=== PATIENT | female | born 1985 | race Hispanic/Latino ===

== ENCOUNTER 2019-02-23 09:19 | Emergency (ER) | payer OTHER ==
[2019-02-23 09:34] VITALS: TEMP 98.6; BMI 38.4
[2019-02-23] MEDS ORDERED: Sodium Chloride 0.9% 1,000 ML IV STA (10:02)
--- NOTE | 2019-02-23 10:23 | ED PDOC ---
Arrival/HPI - General Chief Complaint: Abdominal Pain Time Seen by Provider: 02/23/19 09:33 Historian: Patient - History of Present Illness Narrative History of Present Illness (Text): 33 y/o female with PMH of GERD and anxiety presents to the ED c/o abdominal pain x 1 day. Abdominal pain is sharp, epigastric, with radiation into her back. Associated bloating and nausea. Symptoms began yesterday after a vodka soda and salad at dinner. Back pain is worse with movement, and she thinks she may have strained herself picking up heavy laundry bags the last 2 days. She saw her PMD early yesterday for sinus congestion and was prescribed an antibiotic that she has not started yet. Pt has had problems with GERD in the past and was referred for an endoscopy last year but never followed up. No recent travel, sick contacts, or recent antibiotic use. Pt has not taken any medication for pain. Denies fever, chills, vomiting, diarrhea, constipation, cough, chest pain, SOB, urinary symptoms, vaginal bleeding/odor, saddle anesthesia, bowel/bladder incontinence, dizziness, or any other associated symptoms. Past Medical History - Provider Review Nursing Documentation Reviewed: Yes - Cardiac Hx Cardiac Disorders: Yes Hx Hypertension: Yes - Pulmonary Hx Respiratory Disorders: No - Neurological Hx Neurological Disorder: No - HEENT Hx HEENT Disorder: No - Renal Hx Renal Disorder: No - Endocrine/Metabolic Hx Endocrine Disorders: No - Hematological/Oncological Hx Blood Disorders: No - Integumentary Hx Dermatological Disorder: No - Musculoskeletal/Rheumatological Hx Musculoskeletal Disorders: No - Gastrointestinal Hx Gastrointestinal Disorders: No - Genitourinary/Gynecological Hx Genitourinary Disorders: No - Psychiatric Hx Psychophysiologic Disorder: Yes Hx Anxiety: Yes Hx Substance Use: No - Surgical History Hx Section: Yes - Anesthesia Hx Anesthesia: No Family/Social History - Physician Review Nursing Documentation Reviewed: Yes Family/Social History: No Known Family HX Smoking Status: Heavy Smoker > 10 Cigarettes Daily Hx Alcohol Use: Yes Frequency of alcohol use: Socially Hx Substance Use: No Allergies/Home Meds Allergies/Adverse Reactions: Allergies No Known Allergies Allergy (Verified 02/23/19 09:50) Review of Systems - Review of Systems Constitutional: Normal. absent: Fevers Eyes: Normal. absent: Vision Changes ENT: Sinus Congestion. absent: Sore Throat Respiratory: Normal. absent: SOB, Cough Cardiovascular: Normal. absent: Chest Pain, Palpitations, Syncope Gastrointestinal: Abdominal Pain, Nausea, Appetite Changes. absent: Stool Changes, Constipation, Diarrhea, Vomiting, Hematochezia, Hematemesis, Other (no melena) Genitourinary Female: Normal. absent: Dysuria, Frequency, Vaginal Bleeding, Vaginal Discharge Musculoskeletal: Back Pain. absent: Neck Pain Skin: Normal. absent: Rash Neurological: Normal. absent: Headache, Dizziness Psychiatric: Anxiety Physical Exam Vital Signs Reviewed: Yes Vital Signs Temp Pulse Resp BP Pulse Ox 02/23/19 09:28 98.6 F 88 17 176/88 H 99 Temperature: Afebrile Blood Pressure: Hypertensive Pulse: Regular Respiratory Rate: Normal Appearance: Positive for: Well-Appearing, Non-Toxic, Comfortable Pain Distress: None Mental Status: Positive for: Alert and Oriented X 3 - Systems Exam Head: Present: Atraumatic, Normocephalic Pupils: Present: PERRL Extroacular Muscles: Present: EOMI Conjunctiva: Present: Normal Mouth: Present: Moist Mucous Membranes Neck: Present: Normal Range of Motion Respiratory/Chest: Present: Clear to Auscultation, Good Air Exchange. No: R espiratory Distress, Accessory Muscle Use Cardiovascular: Present: Regular Rate and Rhythm, Normal S1, S2 Abdomen: Present: Tenderness (epigastric, mild), Normal Bowel Sounds. No: Distention, Peritoneal Signs, Rebound, Guarding Back: Present: Normal Inspection. No: CVA Tenderness, Midline Tenderness, Paraspinal Tenderness Upper Extremity: Present: Normal Inspection, Normal ROM. No: Cyanosis, Edema Lower Extremity: Present: Normal Inspection, NORMAL PULSES. No: Edema Neurological: Present: GCS=15, Speech Normal, Motor Func Grossly Intact, Normal Sensory Function, Gait Normal Skin: Present: Warm, Dry, Normal Color. No: Rashes Psychiatric: Present: Alert, Oriented x 3, Normal Insight, Normal Concentration, Anxious Medical Decision Making ED Course and Treatment: Initial Plan: * Labs * UA, POC * EKG * CXR * CT Abd/Pelvis * IVF, Protonix, Zofran 10:45 Bloodwork reviewed unremarkable Urine reviewed, unremarkable CXR shows no active disease EKG shows no acute ischemic change POC negative Patient reports resolution of pain with medication. 11:13 Pt asking to leave AMA prior to CT imaging, states she has to go take care of her kids at home. Advised GI and PMD followup. AMA form discussed with pt including risks of leaving before abdominal imaging. Pt verbalized understanding. Form signed by patient, me and witnessed by nursing staff. The patient is choosing to leave against medical advice. I have personally explained to the patient that choosing to do so may result in permanent bodily harm, disability, or . I have discussed at great length that without further evaluation and monitoring there may be unforeseen circumstances and/or deterioration causing permanent bodily harm or as a result of their choice. The patient is alert, oriented, and shows the mental capacity to make clear decisions regarding the patients health care at this time. The patient continues to wish to leave against medical advice. In light of the patients decision to leave against medical advice, follow-up has been arranged and the patient is aware of the importance to following up as instructed. The patient has been advised that they should return to the emergency room immediately if they change their mind at any time, or if their condition begins to change or worsen in any way. - Lab Interpretations Lab Results: 02/23/19 10:30 02/23/19 10:30 Lab Results 02/23/19 10:30: Urine Color Yellow, Urine Appearance Sl cloudy, Urine pH 7.5, Ur Specific [place] 1.020, Urine Protein 100 H, Urine Glucose (UA) Negative, Urine Ketones Trace H, Urine Blood Negative, Urine Nitrate Negative, Urine Bilirubin Negative, Urine Urobilinogen 0.2, Ur Leukocyte Esterase Negative, Urine RBC None, Urine WBC 0 - 2, Ur Epithelial Cells 4 - 5, Urine Bacteria Mod, Urine HCG, Qual Negative 02/23/19 10:30: Sodium 140, Potassium 4.1, Chloride 105, Carbon Dioxide 27, Anion Gap 13, BUN 11, Creatinine 0.7, Est GFR ( Amer) > 60, Est GFR (Non- Af Amer) > 60, Random Glucose 112 H, Calcium 9.2, Magnesium 2.2, Total Bilirubin 0.6, AST 25, ALT 34, Alkaline Phosphatase 66, Troponin I < 0.01, Total Protein 7.6, Albumin 4.5, Globulin 3.2, Albumin/Globulin Ratio 1.4, Lipase 53 02/23/19 10:30: PT 13.3 H, INR 1.18, APTT 31.7 02/23/19 10:30: WBC 7.9, RBC 5.43, Hgb 14.8, Hct 45.2, MCV 83.2, MCH 27.3, MCHC 32.7, RDW 12.6, Plt Count 259, MPV 9.9, Neut % (Auto) 72.3 H, Lymph % (Auto) 19.8 L, [place] % (Auto) 5.7, Eos % (Auto) 2.1, Baso % (Auto) 0.1, Lymph # (Auto) 1.6, [place] # (Auto) 0.5, Eos # (Auto) 0.2, Baso # (Auto) 0.01, Absolute Neuts (auto) 5.72 I have reviewed the lab results: Yes - RAD Interpretation Narrative RAD Interpretations (Text): 02/23/19 11:31 CXR: FINDINGS: LUNGS: No active pulmonary disease. PLEURA: No significant pleural effusion identified, no pneumothorax apparent. CARDIOVASCULAR: No aortic atherosclerotic calcification present. Normal cardiac size. No pulmonary vascular congestion. OSSEOUS STRUCTURES: No significant abnormalities. VISUALIZED UPPER ABDOMEN: Normal. OTHER FINDINGS: None. IMPRESSION: No active disease. Radiology Orders: 02/23/19 10:02 CHEST PORTABLE [RAD] Stat 02/23/19 10:03 ABD & PELVIS IV CONTRAST ONLY [CT] Stat Welder/Installer: Radiologist - EKG Interpretation EKG Interpretation (Text): 02/23/19 11:31 Rate 69; NSR; Normal intervals; No STEMI or other signs of ischemic disease Interpreted by ED Physician: Yes Type: 12 lead EKG - Medication Orders Current Medication Orders: Sodium Chloride (Sodium Chloride 0.9%) 1,000 mls @ 1,000 mls/hr IV .Q1H STA Stop: 02/23/19 11:01 Last Admin: 02/23/19 10:13 Dose: 1,000 mls/hr eMAR Start Stop Document 02/23/19 10:13 CD (Rec: 02/23/19 10:13 CD [facility] [id number] Intravenous Solution Start Date 02/23/19 Start Time 10:13 End Date 02/23/19 End time 11:13 Total Infusion Time 60 Discontinued Medications Ondansetron HCl (Zofran Inj) 4 mg IVP STAT STA Stop: 02/23/19 10:03 Last Admin: 02/23/19 10:13 Dose: 4 mg IVP Administration Document 02/23/19 10:13 CD (Rec: 02/23/19 10:13 CD [facility] [email or web address] Charges for Administration # of IVP Administrations 1 Pantoprazole Sodium (Protonix Inj) 40 mg IVP STAT STA Stop: 02/23/19 10:03 Last Admin: 02/23/19 10:13 Dose: 40 mg IVP Administration Document 02/23/19 10:13 CD (Rec: 02/23/19 10:13 CD [facility] [id number] Charges for Administration # of IVP Administrations 1 Disposition/Present on Arrival - Present on Arrival Any Indicators Present on Arrival: No History of DVT/PE: No History of Uncontrolled Diabetes: No Urinary Catheter: No History of Decub. Ulcer: No History Surgical Site Infection Following: None - Disposition Have Diagnosis and Disposition been Completed?: Yes Diagnosis: Abdominal pain, Back pain, Left against medical advice Disposition: AGAINST MEDICAL ADVICE Disposition Time: 11:13 Patient Plan: Discharge Condition: GUARDED Discharge Instructions (ExitCare): Acid Reflux (Gastroesophageal Reflux Diseas e), Adult (DC), Acute Abdomen (Belly Pain), Adult (DC), Leaving Against Medical Advice Additional Instructions: Return to ED if symptoms worsen/persist, new symptoms arise, or if you wish to be re-evaluated Followup with GI doctor and primary doctor within 2 days Pepcid every 12 hours as needed for heart burn [place] diet, increase fluids Rest, no strenuous activity Prescriptions: Famotidine [Pepcid] 20 mg PO Q12H PRN #30 tab PRN Reason: Indigestion Referrals: Red Cherry DO [Staff Provider] - Follow up with primary Forms: [employer] ([place])
[2019-02-23 10:50] LABS: PH,URINE 7.5 (4.7-8.0); URINE BILIRUBIN NEGATIVE (NEGATIVE); URINE BLOOD NEGATIVE (NEGATIVE); URINE GLUCOSE (UA) NEGATIVE (NEGATIVE); URINE LEUKOCYTE ESTERASE NEGATIVE Leu/uL (NEGATIVE); URINE PROTEIN 100 mg/dL (<30 mg/dL); URINE UROBILINOGEN 0.2 E.U./dL (<1 E.U./dL)
[2019-02-23 10:51] LABS: BASO # 0.01 K/mm3 (0.0-2.0); BASO % 0.1 % (0.0-3.0); EOS # 0.2 (0.0-0.7); EOS % 2.1 % (1.5-5.0); HEMOGLOBIN 14.8 g/dL (12.0-16.0); LYMPH # 1.6 (1.2-3.4); LYMPH % 19.8 % (22.0-35.0); MEAN CELL VOLUME 83.2 fl (80.0-105.0); MEAN CORPUSCULAR HEMOGLOBIN 27.3 pg (25.0-35.0); MEAN CORPUSCULAR HGB CONC 32.7 g/dl (31.0-37.0); MEAN PLATELET VOLUME 9.9 fl (7.0-11.0); MONO # 0.5 (0.1-0.6); MONO % 5.7 % (1.0-6.0); RBC 5.43 10^6/uL (3.5-6.1); RED CELL DISTRIBUTION WIDTH 12.6 % (11.5-14.5); WHITE BLOOD COUNT 7.9 10^3/uL (4.5-11.0)
[2019-02-23 10:52] LABS: URINE APPEARANCE SL CLOUDY (CLEAR); URINE COLOR YELLOW (YELLOW)
[2019-02-23 10:54] LABS: INR 1.18; PARTIAL THROMBOPLASTIN TIME 31.7 Seconds (26.9-38.3); PROTHROMBIN TIME 13.3 SECONDS (9.4-12.5)
[2019-02-23 10:58] LABS: URINE BACTERIA MOD /hpf; URINE WBC 0 - 2 /hpf (0-6)
[2019-02-23 11:01] LABS: ALB/GLOB RATIO 1.4 (1.1-1.8); ALBUMIN 4.5 g/dL (3.0-4.8); ALT/SGPT 34 U/L (7-56); AST/SGOT 25 U/L (14-36); BLOOD UREA NITROGEN 11 mg/dL (7-21); CALCIUM 9.2 mg/dL (8.4-10.5); GFR NON-AFRICAN AMERICAN > 60; HCG,QUALITATIVE URINE NEGATIVE (NEGATIVE); LIPASE 53 U/L (23-300)
[2019-02-23] MEDS ORDERED: Iohexol 350 MG/100 ML VIAL ONE (11:10)
[2019-02-23 11:12] LABS: TROPONIN I < 0.01 ng/mL
--- NOTE | 2019-02-23 11:14 | RAD ---
Date of service: 02/23/2019 HISTORY: abd pain COMPARISON: No prior. TECHNIQUE: 1 view obtained. FINDINGS: LUNGS: No active pulmonary disease. PLEURA: No significant pleural effusion identified, no pneumothorax apparent. CARDIOVASCULAR: No aortic atherosclerotic calcification present. Normal cardiac size. No pulmonary vascular congestion. OSSEOUS STRUCTURES: No significant abnormalities. VISUALIZED UPPER ABDOMEN: Normal. OTHER FINDINGS: None. IMPRESSION: No active disease.
[2019-02-23 11:36] VITALS: BP 143/92; PULSE 82; RESP 16; O2SAT 100
--- NOTE | 2019-02-23 19:18 | CARD ---
APPROVED REPORT Date of service: 02/23/2019 EKG Measurement Heart [id number] <Conclusion> Normal sinus rhythm Normal ECG
== END 2019-02-23 11:38 | disposition left against medical advice (07) ==
LOC: ED 09:19
DX: R10.13 Epigastric pain (principal); M54.9 Dorsalgia, unspecified; F17.210 Nicotine dependence, cigarettes, uncomplicated; I10 Essential (primary) hypertension
CPT/HCPCS: 71045; 80053; 81001; 81025; 83690; 83735; 84484; 84703; 85025; 85610; 85730; 93005; 96361; 96374; 96375; 99285; C9113; J2405; J7030; Q9967